=== PATIENT | female | born 1985 | race American Indian/Alaskan Native ===

== ENCOUNTER 2017-02-15 21:02 | Emergency (ER) | payer SELFPAY ==
[2017-02-15 21:42] LABS: Basophils % (Auto) 0.4 % (0.0-1.8); Eosinophils % (Auto) 0.3 % (0.0-4.3); Hematocrit 30.1 % (30.3-42.9); Hemoglobin 9.6 gm/dl (10.1-14.3); Mean Corpuscular HGB Conc 32 % (30-34); Mean Corpuscular Volume 77 fl (79-97); Platelet Count 258 K/mm3 (140-440); Red Blood Count 3.94 M/mm3 (3.65-5.03); White Blood Count 6.3 K/mm3 (4.5-11.0)
[2017-02-15 21:44] LABS: Mean Corpuscular Hemoglobin 25 pg (28-32)
[2017-02-15 21:54] LABS: INR 1.01 (0.87-1.13)
[2017-02-15 22:01] LABS: Anion Gap 17 mmol/L; BUN/Creatinine Ratio 24.28; Blood Urea Nitrogen 17 mg/dL (7-17); Carbon Dioxide 25 mmol/L (22-30); Chloride 102.3 mmol/L (98-107); Glucose 90 mg/dL (65-100); Potassium 3.9 mmol/L (3.6-5.0); Sodium 140 mmol/L (137-145)
--- NOTE | 2017-02-15 23:41 | Emergency Department Report ---
ED Chest Pain HPI - General Chief Complaint: Chest Pain Stated Complaint: CP Time Seen by Provider: 02/15/17 23:28 Source: patient Mode of arrival: Ambulatory Limitations: No Limitations - History of Present Illness Initial Comments: 31 years old female history of PE complaining of right sided chest pain sharp in nature started tonight. Patient stated that she has been out of her Elliquis for more than a month she recently just moved from [place]. Complaint: chest pain -: Sudden Onset: during rest Pain Location: right chest Pain Radiation: none Severity scale (0 -10): 6 Quality: sharp - Related Data Previous Rx's Medication Instructions Recorded Last Taken Type Apixaban [Eliquis] 5 mg PO BID #60 tablet 02/16/17 Unknown Rx Allergies Allergy/AdvReac Type Severity Reaction Status Date / Time No Known Allergies Allergy Verified 02/16/17 00:32 Heart Score - HEART Score History: Slightly suspicious EKG: Non-specific Age: < 45 Risk factors: No known risk factors Troponin: < normal limit HEART Score: 1 - Critical Actions Critical Actions: 0-3 pts:0.9-1.7%risk of adverse cardiac event.Candidate for discharge ED Review of Systems ROS: Stated complaint: CP Other details as noted in HPI Comment: All other systems reviewed and negative Constitutional: denies: chills, fever ENT: denies: throat pain Respiratory: denies: cough, orthopnea, shortness of breath, SOB with exertion Cardiovascular: chest pain. denies: palpitations Gastrointestinal: denies: abdominal pain, nausea, vomiting ED Past Medical Hx - Past Medical History Additional medical history: PE - Surgical History Past Surgical History?: No - Social History Smoking Status: Never Smoker Substance Use Type: None - Medications Home Medications: Home Medications Medication Instructions Recorded Confirmed Last Taken Type Apixaban [Eliquis] 5 mg PO BID #60 tablet 02/16/17 Unknown Rx ED Physical Exam - General Limitations: No Limitations General appearance: alert - Eye Eye exam: Present: normal appearance - ENT ENT exam: Present: normal exam - Neck Neck exam: Present: normal inspection - Respiratory Respiratory exam: Present: normal lung sounds bilaterally. Absent: wheezes, rales, rhonchi, chest wall tenderness, accessory muscle use, decreased breath sounds - Cardiovascular Cardiovascular Exam: Present: regular rate, normal rhythm, normal heart sounds - GI/Abdominal GI/Abdominal exam: Present: soft. Absent: tenderness, guarding, rebound - Extremities Exam Extremities exam: Present: normal inspection. Absent: pedal edema, calf tenderness - Back Exam Back exam: Present: normal inspection. Absent: CVA tenderness (R), CVA tenderness (L) - Neurological Exam Neurological exam: Present: alert, oriented X3, CN II-XII intact, normal gait - Skin Skin exam: Present: warm, normal color ED Course Vital Signs 02/15/17 02/15/17 02/16/17 21:11 23:51 00:06 Temperature 98.1 F Pulse Rate 75 Respiratory 18 18 16 Rate Blood Pressure 109/78 O2 Sat by Pulse 100 100 Oximetry - Reevaluation(s) Reevaluation #1: 02/16/17 01:34 Patient sleeping well comfortably in bed in no acute distress. Discuss the CTA results with the radiologist applications administrator, and seems to be chronic clots although don 't have any records to compare with the previous CT. I discussed the patient is Dr. Karolyn Garcia who agreed that patient can be discharged home and restarted back on her Elliquos and to follow up with her PCP. ED Medical Decision Making - Lab Data Result diagrams: 02/15/17 21:23 02/15/17 21:28 Critical care attestation.: If time is entered above; I have spent that time in minutes in the direct care of this critically ill patient, excluding procedure time. ED Disposition Clinical Impression: Chest pain, H/O pulmonary artery thrombosis Disposition: DC-01 TO HOME OR SELFCARE Is pt being admited?: No Condition: Stable Instructions: Chest Pain (ED), Pulmonary Embolism (GEN)
[2017-02-15] MEDS ORDERED: MORPHINE IV ONE (23:48)
[2017-02-15] MEDS ORDERED: ZOFRAN IV ONE (23:48)
[2017-02-16] MEDS ORDERED: NACL ONE (00:25)
--- NOTE | 2017-02-16 01:23 | Cat Scan Report ---
FINAL REPORT EXAM: CT ANGIO CHEST HISTORY: CHEST PAIN,H/O PE, OUT OF ELLIQUIS COMPARISON: None available. TECHNIQUE: Contiguous axial images were obtained. Additional sagittal and coronal reformatted images were obtained. Administration of IV contrast given per institution protocol. Images submitted for interpretation. 100 cc Omnipaque [id number]. FINDINGS: Mild cardiac enlargement. Ascending thoracic aorta measures 3 centimeters in diameter within normal limits. No dissection. No rupture of the thoracic aorta. No central pulmonary embolus. There is a nonocclusive thrombus within the segmental branches the right lower lobe (series 3, image 59 and series 202, image 70). Small thymic remnant is present. No pathologically enlarged intrathoracic or axillary lymph nodes. Trace right-sided pleural effusion. Nonspecific linear densities at the right lung base. IMPRESSION: Nonocclusive thrombus within a segmental branch at the medial margin right lower lobe. This is of uncertain chronicity and may be chronic. No central pulmonary embolus. Trace right-sided pleural effusion and linear consolidation right lower lobe likely reflecting area of atelectasis. Mild cardiac enlargement.
[2017-02-16 02:02] VITALS: BP 125/82
== END 2017-02-16 02:01 | disposition home or self-care (01) ==
LOC: ED 21:02
DX: R07.89 Other chest pain (principal)
CPT/HCPCS: 36415; 71275; 80048; 84484; 84703; 85025; 85379; 85610; 93005; 93010; 96374; 96375; 99284; J2270; J2405; Q9967

== ENCOUNTER 2017-02-26 01:57 | Emergency (ER) | payer SELFPAY ==
[2017-02-26 02:58] LABS: Basophils % (Auto) 0.3 % (0.0-1.8); Eosinophils % (Auto) 0.7 % (0.0-4.3); Hematocrit 31.8 % (30.3-42.9); Hemoglobin 10.1 gm/dl (10.1-14.3); Mean Corpuscular HGB Conc 32 % (30-34); Mean Corpuscular Volume 76 fl (79-97); Platelet Count 187 K/mm3 (140-440); Red Blood Count 4.21 M/mm3 (3.65-5.03); Red Cell Distribution Width 16.7 % (13.2-15.2)
[2017-02-26 03:06] LABS: INR 1.04 (0.87-1.13)
[2017-02-26 03:07] LABS: Partial Thromboplastin Time 36.1 Sec. (24.2-36.6)
[2017-02-26 03:16] LABS: Anion Gap 17 mmol/L; BUN/Creatinine Ratio 23.33; Blood Urea Nitrogen 14 mg/dL (7-17); Calcium 8.5 mg/dL (8.4-10.2); Carbon Dioxide 22 mmol/L (22-30); Chloride 101.9 mmol/L (98-107); Glucose 90 mg/dL (65-100); Potassium 3.9 mmol/L (3.6-5.0); Sodium 137 mmol/L (137-145)
[2017-02-26 03:19] LABS: Mean Corpuscular Hemoglobin 24 pg (28-32)
[2017-02-26 05:11] VITALS: BP 112/74
--- NOTE | 2017-02-26 07:17 | XRay Report ---
ROUTINE CHEST, TWO VIEWS: HISTORY: Shortness of breath. Small right pleural effusion is identified which is grossly unchanged since the CT chest dated 02/16/17. The remainder of the lungs are clear. Normal heart and mediastinal structures. Normal bony thorax. IMPRESSION: Small right pleural effusion.
== END 2017-02-26 05:35 | disposition left against medical advice (07) ==
LOC: ED 01:57
DX: R07.9 Chest pain, unspecified (principal); Z53.21 Procedure and treatment not carried out due to patient leaving prior to being seen by health care provider
CPT/HCPCS: 36415; 71020; 80048; 81025; 84484; 85025; 85379; 85610; 85730; 93005; 93010